=== PATIENT | female | born 1965 | race Native Hawaiian/Other Pacific Islander ===

== ENCOUNTER 2017-03-26 09:22 | Outpatient (CLI) | payer BC, OTHER ==
--- NOTE | 2017-03-27 08:30 | Mammography Report ---
BILATERAL DIGITAL SCREENING MAMMOGRAM with CAD : 03/26/17 09:22:00 CLINICAL: Routine screening. COMPARISON:02/10/16 and 01/18/16 FINDINGS: The breasts are heterogeneously dense, which may obscure small masses.A right accessory nipple is marked with a palpable marker and there is a stable asymmetry deep to the nipple on the MLO view. No mass, architectural distortion or suspicious calcifications. IMPRESSION: No mammographic evidence of malignancy. BI-RADS CATEGORY: 2 -- Benign RECOMMENDATION: Routine mammographic screening in one year. COMMENT: Patient follow-up letters are generated by our [employer] application.
== END 2017-03-26 09:23 | disposition home or self-care (01) ==
LOC: SPVWC 09:22
PROVIDERS: ATTEND Obstetrics & Gynecology
DX: Z12.31 Encounter for screening mammogram for malignant neoplasm of breast (principal)
CPT/HCPCS: 77067; G0202